=== PATIENT | male | born 1970 | race Caucasian/White ===

== ENCOUNTER 2017-08-24 14:18 | Emergency (ER) | payer MEDICAID, OTHER ==
[~2017-08-24] VITALS: Ht 182.9 cm; Wt 101.2 kg
[~2017-08-24 14:18] MED LIST: ADV50100 IH; OMEP20CA4 PO
[2017-08-24 14:21] VITALS: BP 158/94
[2017-08-24] MEDS ORDERED: BENZ-16 PO (14:50)
[2017-08-24] MEDS ORDERED: AZIT500T PO (14:50)
== END 2017-08-24 15:17 | disposition home or self-care (01) ==
LOC: ER 14:18
DX: J06.9 Acute upper respiratory infection, unspecified (principal); I10 Essential (primary) hypertension; Z98.890 Other specified postprocedural states; Z90.49 Acquired absence of other specified parts of digestive tract
CPT/HCPCS: 99283

== ENCOUNTER 2018-05-30 18:59 | Emergency (ER) | payer MEDICAID, OTHER ==
[~2018-05-30] VITALS: Ht 180.3 cm; Wt 105.3 kg
[2018-05-30] MEDS ORDERED: glucagon, human recombinant 1mg kit IV ONE (19:10)
[2018-05-30 19:34] LABS: BASOPHILS % (AUTO) 0.4 % (0-1); EOSINOPHILS # (AUTO) 0.2 X10'3 (0-0.9); EOSINOPHILS % (AUTO) 2.1 % (0-6); HEMATOCRIT 40.2 % (42.0-52.0); HEMOGLOBIN 13.6 g/dl (14.0-17.9); LYMPHOCYTES # (AUTO) 3.9 X10'3 (1.1-4.8); LYMPHOCYTES % (AUTO) 33.3 % (21-51); MEAN CORPUSCULAR HEMOGLOBIN 32.1 PG (27.0-31.0); MEAN CORPUSCULAR HGB CONC 33.9 % (33.0-36.5); MEAN CORPUSCULAR VOLUME 94.5 FL (78-98); MEAN PLATELET VOLUME 7.6 FL (7.4-10.4); MONOCYTES # (AUTO) 0.6 X10'3 (0-0.9); MONOCYTES % (AUTO) 5.5 % (2-12); NEUTROPHILS # (AUTO) 6.8 X10'3 (1.8-7.7); NEUTROPHILS % (AUTO) 58.7 % (42-75); PLATELET COUNT 469 X10'3 (140-440); RED BLOOD COUNT 4.26 X10'6 (4.70-6.10); RED CELL DISTRIBUTION WIDTH 12.8 % (11.5-14.5); WHITE BLOOD COUNT 11.6 X10'3 (4.5-11.0)
[2018-05-30] MEDS ORDERED: fentaNYL/PF 50MCG/1 ML 2ML syringe ONE (19:51)
[2018-05-30] MEDS ORDERED: MIDAZolam 5mg/5ml vial ONE (19:52)
[2018-05-30] MEDS ORDERED: LIDOcaine Viscous 15ml cup ONE (19:52)
[2018-05-30 20:09] VITALS: BP 142/82
[2018-05-30 20:14] LABS: ALANINE AMINOTRANSFERASE 53 U/L (12-78); ALBUMIN 3.2 G/DL (3.4-5.0); ALBUMIN/GLOBULIN RATIO 0.7 (1.1-1.5); ALKALINE PHOSPHATASE 61 IU/L (46-116); ANION GAP 9 (8-16); ASPARTATE AMINO TRANSFERASE 31 U/L (10-37); BILIRUBIN,TOTAL 0.2 MG/DL (0.1-1.0); BLOOD UREA NITROGEN 11 MG/DL (7-18); BUN/CREATININE RATIO 13.1 (5.4-32.0); CALCIUM 8.6 MG/DL (8.5-10.1); CHLORIDE 102 MMOL/L (99-107); CREATININE 0.84 MG/DL (0.60-1.10); GLUCOSE 110 MG/DL (70-104); SODIUM 140 MMOL/L (135-145); TOTAL CARBON DIOXIDE 28.8 MMOL/L (24-32); TOTAL PROTEIN 7.9 G/DL (6.4-8.2); eGFR > 90 ML/MIN
[2018-05-30 20:19] VITALS: BP 120/73
[2018-05-30 20:22] VITALS: BP 153/93
[2018-05-30 20:27] LABS: PARTIAL THROMBOPLASTIN TIME 25 SECONDS (22-32); PROTHROMBIN TIME 10.6 SECONDS (9.0-12.0)
[2018-05-30 20:29] VITALS: BP 125/75
[2018-05-30 20:37] VITALS: BP 116/79
[2018-05-30 20:52] VITALS: BP 141/93
== END 2018-05-30 20:58 | disposition home or self-care (01) ==
LOC: ER 18:59
DX: T18.128A Food in esophagus causing other injury, initial encounter (principal); I10 Essential (primary) hypertension; Z90.49 Acquired absence of other specified parts of digestive tract; Z98.890 Other specified postprocedural states; Z87.442 Personal history of urinary calculi; Z79.899 Other long term (current) drug therapy; Y92.9 Unspecified place or not applicable
CPT/HCPCS: 36415; 43247; 80053; 85025; 85610; 85730; 96374; 99152; 99285; J1610; J2250; J3010; J7030; A4620

== ENCOUNTER 2018-07-14 17:32 | Emergency (ER) | payer OTHER ==
[~2018-07-14] VITALS: Ht 180.3 cm; Wt 104.5 kg
[2018-07-14] MEDS ORDERED: ondansetron/PF 4mg/2ml inj IV ONE (17:55)
[2018-07-14] MEDS ORDERED: glucagon, human recombinant 1mg kit IV ONE (17:55)
[2018-07-14] MEDS ORDERED: LORazepam 2 mg/ml vial IV ONE (17:55)
[2018-07-14] MEDS ORDERED: normal saline 1000ML IV soln IVB ONE (18:00)
[2018-07-14 19:00] VITALS: BP 139/88
[2018-07-14] MEDS ORDERED: LIDOcaine Viscous 15ml cup ONE (19:12)
[2018-07-14] MEDS ORDERED: fentaNYL/PF 50MCG/1 ML 2ML syringe ONE (19:12)
[2018-07-14] MEDS ORDERED: MIDAZolam 5mg/5ml vial ONE (19:12)
[2018-07-14 19:46] VITALS: BP 144/86
[2018-07-14 19:56] VITALS: BP 125/85
[2018-07-14 20:06] VITALS: BP 131/80
[2018-07-14 20:16] VITALS: BP 131/85
[2018-07-14 20:24] VITALS: BP 160/101
== END 2018-07-14 20:48 | disposition home or self-care (01) ==
LOC: ER 17:32
DX: T18.128A Food in esophagus causing other injury, initial encounter (principal); I10 Essential (primary) hypertension; Z90.49 Acquired absence of other specified parts of digestive tract; Z98.890 Other specified postprocedural states; Z79.899 Other long term (current) drug therapy; Y92.9 Unspecified place or not applicable
CPT/HCPCS: 43247; 43248; 70360; 96374; 96375; 99152; 99153; 99285; J1610; J2060; J2250; J2405; J3010; J7030; A4620

== ENCOUNTER 2019-01-17 12:13 | Emergency (ER) | payer MEDICAID ==
[~2019-01-17] VITALS: Ht 180.3 cm; Wt 100.0 kg
[2019-01-17 12:34] VITALS: BP 132/102
[2019-01-17] MEDS ORDERED: tetanus & diphtheria toxoid (Td) vaccine 0.5ml IMVAC ONE (14:15)
[2019-01-17] MEDS ORDERED: TETanus/Pertussis (Acell)/Diphther VAC/PF (Tdap-Adult) 0.5ml syringe IMVAC ONE (14:20)
[2019-02-14] MEDS ORDERED: CYCL-1 PO (01:57)
== END 2019-01-17 14:35 | disposition home or self-care (01) ==
LOC: ER 12:13
DX: S61.412A Laceration without foreign body of left hand, initial encounter (principal); I10 Essential (primary) hypertension; F32.9 Major depressive disorder, single episode, unspecified; Z87.442 Personal history of urinary calculi; Z90.49 Acquired absence of other specified parts of digestive tract; Z98.890 Other specified postprocedural states; Z79.899 Other long term (current) drug therapy; W26.0XXA Contact with knife, initial encounter; Y93.89 Activity, other specified; Y92.69 Other specified industrial and construction area as the place of occurrence of the external cause; Y99.9 Unspecified external cause status
CPT/HCPCS: 12001; 90471; 99283

== ENCOUNTER 2019-12-25 12:21 | Day surgery (SDC) | payer MEDICAID ==
[~2019-12-25] VITALS: Ht 180.3 cm; Wt 109.1 kg
[~2019-12-25 12:21] MED LIST changes: +CYCL-1 PO
[2019-12-25 12:30] VITALS: BP 135/88
[2019-12-25] MEDS ORDERED: fentaNYL/PF 50MCG/1 ML 2ML syringe ONE (12:52)
[2019-12-25] MEDS ORDERED: LIDOcaine Viscous 15ml cup ONE (12:53)
[2019-12-25] MEDS ORDERED: MIDAZolam 5mg/5ml vial ONE (12:53)
[2019-12-25] MEDS ORDERED: LISI-600 PO (12:55)
[2019-12-25] MEDS ORDERED: AMLO10TA PO (13:08)
[2019-12-25] MEDS ORDERED: CETI10TA15 PO (13:09)
[2019-12-25] MEDS ORDERED: MELA10TA2 PO (13:09)
[2019-12-25 14:46] VITALS: BP 143/93
[2019-12-25 14:55] VITALS: BP 110/69
[2019-12-25 15:05] VITALS: BP 124/67
[2019-12-25 15:15] VITALS: BP 124/68
== END 2019-12-25 15:20 | disposition home or self-care (01) ==
LOC: GI LAB 12:21
PROVIDERS: ATTEND Internal Medicine Gastroenterology
DX: Z12.11 Encounter for screening for malignant neoplasm of colon (principal); R13.10 Dysphagia, unspecified; K57.30 Diverticulosis of large intestine without perforation or abscess without bleeding; K62.1 Rectal polyp; K64.8 Other hemorrhoids; K22.2 Esophageal obstruction; K20.8 Other esophagitis
CPT/HCPCS: 43239; 43249; 45385; 99152; 99153; C1726; C1773; J2250; J3010; J7040; A4620